=== PATIENT | female | born 2000 | race Asian ===

== ENCOUNTER 2022-08-11 13:56 | Outpatient (CLI) | payer OTHER, SELFPAY ==
[2022-08-11 19:08] LABS: Chlamydia DNA Amplified* NOT DETECTED (No Detected); GC DNA Amplified* NOT DETECTED (No Detected)
== END 2022-08-11 13:57 | disposition home or self-care (01) ==
LOC: NFLDREF 13:59
PROVIDERS: Visit Provider Physician Assistant
DX: Z11.3 Encounter for screening for infections with a predominantly sexual mode of transmission (principal)
CPT/HCPCS: 87491; 87591